=== PATIENT | male | born 1970 | race Caucasian/White ===

== ENCOUNTER 2017-06-17 11:06 | Inpatient (IN) | payer OTHER ==
[~2017-06-17] VITALS: Ht 170.2 cm; Wt 63.0 kg
[~2017-06-17 11:06] MED LIST: GLUCOPHAGE1000 MG PO; LANTUS SC; MELOXICAM7.5 MG PO
[2017-06-17 11:08] VITALS: BP 190/100
[2017-06-17 11:57] LABS: HEMATOCRIT 24.4 % (42.0-52.0); HEMOGLOBIN 8.3 gm/dL (14.0-18.0); MCH 30.1 pg (26.0-34.0); MCV 88.6 fL (80.0-100.0); MPV 7.7 fl. (7.2-11.1); NUCLEATED RBCS 0 /100WBC; PLATELET COUNT* 178 thou/uL (150-400); RBC 2.76 mil/uL (4.50-6.00); RDW-CV 14.1 % (10.5-14.5)
[2017-06-17 12:04] LABS: ANION GAP 10 mmol/L (7-16); APTT 24.7 Seconds (25.0-31.3); BUN 40 mg/dL (7-18); CALCIUM 8.1 mg/dL (8.5-10.1); CHLORIDE 109 mmol/L (98-107); CO2 22 mmol/L (21-32); CREATININE 3.5 mg/dL (0.6-1.3); GLUCOSE 237 mg/dL (70-99); PROTIME 10.2 Seconds (9.20-11.50); SODIUM 141 mmol/L (136-145)
[2017-06-17 12:10] LABS: ALBUMIN 2.1 g/dL (3.4-5.0); ALKALINE PHOSPHATASE 197 U/L (46-116); LIPASE 105 U/L (73-393); SGOT 32 U/L (15-37); SGPT 48 U/L (30-65); TOTAL BILIRUBIN 0.2 mg/dL (<0.1-1.0); TOTAL PROTEIN 5.3 g/dL (6.4-8.2); TROPONIN-I LEVEL <0.06 ng/mL (<0.06)
[2017-06-17 12:44] LABS: ABSOLUTE LYMPHOCYTES 0.4 thou/uL (0.8-5.3); ABSOLUTE MONOCYTES 0.7 thou/uL (0.0-1.2); ABSOLUTE NEUTROPHILS 8.9 thou/uL (1.6-8.1); PLATELET ESTIMATE ADEQUATE
[2017-06-17 12:45] LABS: ANISOCYTOSIS 1+; POIKILOCYTOSIS 1+
[2017-06-17 13:31] VITALS: BP 152/86; BP 227/80
[2017-06-17 14:00] VITALS: BP 161/86
--- NOTE | 2017-06-17 14:00 | NUR ---
RECEIVED REPORT FROM LUIS ALBERTO IN ER. ASSUMED CARE OF PT AT 1350. VSS. PT A&O X4. O2 SAT 98% ON ROOM AIR. METAL COATER PLACED TRACING SR. ADMISSION ASSESSMENT, HISTORY, AND EDUCATION COMPLETED CHARTED. PT ORIENTED TO ROOM, BED AND CALL LIGHT. IV SALINE LOCKED. PT REPORTS LEFT LEG PAIN AT 6/10. SEE EMAR FOR ADMINISTRATION AND REASSESSMENT OF PAIN MEDS. PT'S MOTHER IS AT BEDSIDE. XRAY OF FEMUR SHOWS FRACTURE - PT SCHEDULED TO HAVE SURGERY TOMOROW. PT INFORMED OF PLAN OF CARE. PT COMMUNICATES UNDERSTANDING. PT STATES HE IS HUNGRY, HOWEVER REFUSED A SNACK OF BOX LUNCH STATING HE COULD "WAIT TILL DINNER". PT DRINKING WITHOUT ISSUE. HIGH FALL RISK PRECAUTIONS IN PLACE, CALL LIGHT IS WITHIN REACH. WILL CONTINUE TO MONITOR.
[2017-06-17 15:51] VITALS: BP 137/74
[2017-06-17] MEDS ORDERED: LISINOPRIL10 MG PO (16:27)
[2017-06-17] MEDS ORDERED: ZETIA10 MG PO (16:28)
--- NOTE | 2017-06-17 17:06 | EKG ---
[place] [address] ELECTROCARDIOGRAM REPORT Name: DELISA EVANS Room: [address] ADM IN M.R.#: [id number] Admission: 06/17/17 Attend Phys: Estuardo Mckee MD Discharge: Date of : 66 Report #: [id number] THIS REPORT FOR: //name// [facility] ED Test Date: 2017-06-17 Test Time: 11:32:33 Pat Name: DELISA EVANS Department: Room: [facility] Gender: Judge'S Clerk: Angel COOL : 1970 Requested By: Dejah Lou Order Number: [id number] MD: David Villegas Measurements Intervals Squires Rate: 93 P: 63 OR: 139 QRS: -13 QRSD: 86 T: 26 QT: 338 QTc: 421 Interpretive Statements Sinus rhythm No previous ECG available for comparison Electronically Signed On 06-17-2017 17:06:29 STRING LASTER by David Villegas [email or web address] <ELECTRONICALLY SIGNED> By: David Villegas MD, [facility] 06/17/17 1706 31 31 David Villegas MD, FACC /EPI
--- NOTE | 2017-06-17 18:23 | NUR ---
VSS. O2 SAT REMAINS >90% ON ROOM AIR. FOUNTAIN VENDING MECHANIC REMAINS IN PLACE WITH NO CHANGES THIS SHIFT. PT RECEIVED IV PAIN MEDICATION FOR LEFT HIP PAIN WITH RELIEF. IV PATENT AND INFUSING. PT SEEN BY ORTHO SURGERY. CONSENTS FOR FEMUR REPAIR SIGNED AND IN THE CHART. ATTEMPTED MULTIPLE TIMES TO OBTAIN URINE SAMPLE, BUT PT CONTINUES TO STATE "I DON'T NEED TO GO RIGHT NOW". URINAL LEFT AT BEDSIDE FOR PT'S CONVENIENCE. PT ON BEDREST UNTILL SURGERY TOMORROW. PT TO BE NPO AFTER MIDNIGHT. PT REFUSED TO BE REPOSITIONED IN THE BED STATING "I'M MOST COMFORTABLE ON MY BACK". EDUCATION GIVEN ABOUT THE NEED TO TURN Q2HRS. NO SKIN ISSUES OBSERVED. PT EATING AND DRINKING WITHOUT ISSUE. MOTHER STILL AT BEDSIDE. HOULRY ROUNDING PERFORED. HIGH FALL RISK PRECAUTIONS IN PLACE. CALL LIGHT IS WITHIN REACH. WILL CONTINUE TO MONITOR FOR DURATION OF SHIFT.
[2017-06-17 20:00] VITALS: BP 149/83
[2017-06-17 22:19] LABS: URINE BILIRUBIN NEGATIVE (Negative); URINE BLOOD 3+ (Negative); URINE CLARITY CLEAR; URINE COLOR YELLOW; URINE GLUCOSE-RANDOM 1+ (Negative); URINE KETONES NEGATIVE (Negative); URINE LEUKOCYTES NEGATIVE (Negative); URINE NITRITE NEGATIVE (Negative); URINE PROTEIN 3+ (Negative); URINE UROBILINOGEN 0.2 E.U./dl (0.2-1.0)
[2017-06-17 22:27] LABS: AMP/METHAMP Negative (Negative); BARBITURATES Negative (Negative); BENZODIAZEPINES Negative (Negative); CASTS None Seen /LPF (None Seen); COCAINE Negative (Negative); CRYSTALS None Seen /LPF (None Seen); METHADONE Negative (Negative); OPIATES POSITIVE (Negative); PCP Negative (Negative); SQUAMOUS 0-3 Few /LPF (0-3); THC Negative (Negative); URINE RBC None Seen /HPF (0-2); URINE WBC 0-5 Rare /HPF (0-5)
[2017-06-17 22:28] LABS: BACTERIA None Seen /HPF (None Seen)
[2017-06-18] VITALS: BP 120/76
[2017-06-18 03:13] LABS: GLYCOHEMOGLOBIN (HGB A1C) 4.6 % (4.8-5.6)
[2017-06-18 04:00] VITALS: BP 136/57
[2017-06-18 05:18] LABS: ABSOLUTE EOSINOPHILS 0.1 thou/uL (0.0-0.7); ABSOLUTE LYMPHOCYTES 0.8 thou/uL (0.8-5.3); ABSOLUTE MONOCYTES 0.9 thou/uL (0.0-1.2); ABSOLUTE NEUTROPHILS 5.6 thou/uL (1.6-8.1); BASOPHILS 0.5 %; EOSINOPHILS 0.7 %; LYMPHOCYTES 10.4 %; MCH 30.3 pg (26.0-34.0); MCHC 34.1 g/dL (28.0-37.0); MCV 88.8 fL (80.0-100.0); MONOCYTES 12.1 %; MPV 8.1 fl. (7.2-11.1); NUCLEATED RBCS 0 /100WBC; PLATELET COUNT* 189 thou/uL (150-400); POLYS 76.3 %; RBC 2.04 mil/uL (4.50-6.00); RDW-CV 14.4 % (10.5-14.5); WBC 7.4 thou/uL (4.0-11.0)
[2017-06-18 05:44] LABS: HEMATOCRIT 18.1 % (42.0-52.0); HEMOGLOBIN 6.2 gm/dL (14.0-18.0)
[2017-06-18 05:53] LABS: CALCIUM 7.2 mg/dL (8.5-10.1); CREATININE 3.7 mg/dL (0.6-1.3); POTASSIUM 5.2 mmol/L (3.5-5.1)
--- NOTE | 2017-06-18 07:33 | CON ---
[address] [address] CONSULTATION Name: DELISA EVANS Room: [address] IN .R.#: [id number] Admission: 06/17/17 Attend Phys: Estuardo Mckee MD Discharge: Date of : 66 Report #: [id number] THIS REPORT FOR: //name// CC: Estuardo Juárez DATE OF SERVICE: 06/17/2017 CHIEF COMPLAINT: Left hip pain and fracture. HISTORY OF PRESENT ILLNESS: The patient is a 46-year-old male with medical history that presented home with fall. Does live with his mother and has longstanding diabetes, is insulin-dependent. Mother mentions he may have been hypoglycemic, lost his balance, had a fall. Denies any syncope or chest pain. The patient is not aware of anything he could have tripped over but states he does have pain that last for hours since his injury, does get to an 8/10, increasing to 10/10 with movement. He has been admitted through the ER. He is currently immobilized and resting in bed and states that this does help. We are consulted for further evaluation. MEDICAL HISTORY: Kidney failure, anemia, left femur fracture, diabetes. ALLERGIES: The patient denies. MEDICATIONS: Metformin, insulin, meloxicam. FAMILY HISTORY: The patient has no pertinent and noncontributory family history. SOCIAL HISTORY: The patient denies smoking, alcohol or recreational drug use. REVIEW OF SYSTEMS: A 12-system review of systems is negative except for pertinent positives revealed in HPI. PHYSICAL EXAMINATION: GENERAL: The patient is in no acute distress at this time. HEENT: Head: Normocephalic, atraumatic. Eyes: Pupils equal, round and reactive. NOSE: Clear without ulceration. MOUTH: Mucous membranes dry. No ulcerations. NECK: Supple, no JVD. CARDIOVASCULAR: Regular rate and rhythm. Cap refill normal. LUNGS: Clear to auscultation bilaterally. No wheezes or rales. ABDOMEN: Soft. Bowel sounds present. EXTREMITIES: The patient has had shortened externally rotated left lower extremity with painful movement. Does [place] [address] CONSULTATION Name: DELISA EVANS Room: [address]#: [id number] Admission: 06/17/17 Attend Phys: Estuardo Mckee MD Discharge: Date of : 66 Report #: [id number] SKIN: The patient has no rashes or nodules. PSYCHIATRIC: The patient has appropriate mood, affect and judgment. NEUROLOGIC: The patient is alert and oriented x 3. Does have appropriate sensation throughout the lower extremity. X-ray evaluation of the left hip yields a displaced left intertrochanteric femur fracture. Chest x-ray reveals no acute cardiopulmonary processes. Laboratory studies show his hemoglobin low at 8.3. Potassium is 5, he has sodium 141, carbon dioxide 22, anion gap 10, BUN 40, creatinine 3.5, glucose 237. Hemoglobin was 9.3. VITAL SIGNS: Pulse 98, blood pressure 163/82, pulse 93, respirations 13, temperature 98.0. ASSESSMENT: 1. Left femur fracture, intertrochanteric fracture with displacement. 2. Renal failure. 3. Insulin-dependent diabetes. 4. Hypertension. PLAN: At this time, the patient is getting cleared for medical. We will monitor his hemoglobin and hematocrit. He does have a left intertrochanteric fracture, which we discussed intramedullary nailing. He elected to proceed. All risks and benefits were discussed with the patient in detail including but not limited to , heart attack, stroke, blood clots, risk for neurovascular compromise, risk of anesthesia as well as infection. The patient assumed all risks and wished to proceed. <ELECTRONICALLY SIGNED> By: Chun Perez II, DO 06/18/17 0733 1845 1913Chun Perez II, DO /nt
--- NOTE | 2017-06-18 08:49 | NUR ---
ASSUMED CARE OF PATIENT AT 1900 THE PATIENT REMAINS SR ON THE MONITOR O2 SAT MAINTAINED ON RA CONTINUES ON BEDREST PENDING SURGERY PROGRESS TOWARDS GOALS CONTINUES ROMO PLACED IN AM FOR RETENTION PATIENT INTAKE 2 LITER PO PLUS 1 LITER IV 400 CC OUT AT BEGINNING OF SHIFT WITH NOTED PATIENT PLACING URINAL MULTIPLE TIMES WITH UNSUCCESSFUL ATTEMPTS AT VOIDING ROUTINE RECEIVED CRITICAL HGB IN AM 0545 REPORTED TO ORDERS TO TRANSFUSE 2 U PRBC ENTERED ET REPORTED REGIMEN CONTINUES TO BE EFFECTIVE FOR SX MANAGEMENT SAFETY INTERVENTIONS CONTINUE BED LOWERED WHEELS LOCKED CALL LIGHT IN REACH SIDE RAILS UP ALARM ON REPORT GIVEN TO ONCOMING RN
[2017-06-18 10:17] VITALS: BP 146/71; BP 156/73; BP 161/74; BP 161/83; BP 163/71; BP 172/81
--- NOTE | 2017-06-18 10:29 | NUR ---
Pt had first unit of blood given in OR, please see anest record. 2nd unit starting in recovery room at 1025.
[2017-06-18 10:40] VITALS: BP 163/71
--- NOTE | 2017-06-18 10:40 | NUR ---
RECEIVED REPORT. ASSUMED CARE OF PT AT O730. PACU CAME UP TO GET PT FOR LEFT FEMUR REPAIR AT 0740. PT RETURNED TO UNIT AT 1040, RESUMED CARE. PT RECEIVED ONE UNIT OF PRB'S DOWN IN PACU. SECOND UNIT OF BLOOD STARTED IN PACU AND THIS NURSE WILL COMPLETE. PT VSS. O2 SAT CONTINUOUSLY MONITORED, READING 98% ON ROOM AIR. BUSINESS SYSTEMS MANAGER IN PLACE TRACING SR. AM ASSESSMENT AND VITALS COMPLETED CHARTED. IV PATENT AND INFUSING. PT REPORTS LEFT HIP PAIN AT 5/10 BUT DOES NOT WANT MEDICATION FOR PAIN AT THIS TIME. PT TOLERATING BLOOD TRANSFUSION WITHOUT REACTION. MOTHER AT BEDSIDE. FOELY IN PLACE AND DRAINING DEPENDENTLY. LEFT LEG HAS THREE OPERATIVE SITES, DRESSINGS ARE CLEAN, DRY AND INTACT. PT INFORMED OF PLAN OF CARE. PT COMMUNICATES UNDERSTANDING. HIGH FALL RISK PRECAUTIONS ARE IN PLACE. CALL LIGHT IS WITHIN REACH, WILL CONTINUE TO MONITOR.
[2017-06-18 16:19] VITALS: BP 174/80
--- NOTE | 2017-06-18 16:43 | NUR ---
MET WITH PT TO DISCUSS HOME SITUATION/DC PLANNING. PT LIVE WITH HIS MOTHER. HE STATES HE IS INDEPENDENT AND USES NO EQUIPMENT, HASN'T HAD HOME CARE OR BEEN TO A SNF OR REHAB. PT IS S/P FALL AND FEMUR FX AND REPAIR. ANTICIPATE WILL NEED SOME REHAB VS HOME WITH HH. PT STATES HE CHECKS HIS FSBG AT HOME. THAT HE AND MOM BOTH DIRVE 'EACH OTHER' TO APPTS, ETC. WILL FOLLOW
--- NOTE | 2017-06-18 19:00 | NUR ---
VSS. O2 SAT REMAINS >90% ON ROOM AIR. CONTINUOUS PULSE OX IN PLACE. TECHNICAL SUPPORT INTERNSHIP IN PLACE WITH NO CHAGNES THIS SHIFT. PT REMAINS A&O X4. PT HAS REPORTED LEFT HIP PAIN THAT HAS BEEN WELL CONTROLLED WITH IV PAIN MEDICATION. PT EATING AND DRINKING WITHOUT ISSUE. ROMO IN PLACE DRAINING DEPENDENTLY - 1500 OUT DOWN IN PACU, 250 OUT ON THIS FLOOR. PT REFUSING TO BE TURNED Q2HRS, BUT HAS ALLOWED HEELS TO BE OFFLOADED WITH PILLOWS. PT STATES THAT HE WILL ALLOW PILLOWS TO PROP HIM ON HIS SIDE TONIGHT WHEN HE'S "READY TO SLEEP". MOTHER VISTED THIS AFTERNOON. PT CONTINUED TO HAVE NO ADVERSE EFFECTS FROM BLOOD TRANSFUSIONS. IV PATENT AND INFUSING FLUIDS. FALL RISK PRECAUTIONS IN PLACE. CALL LIGHT IS IN PLACE. HOURLY ROUNDING. WILL CONTINUE TO MONITOR FOR DURATION OF SHIFT.
[2017-06-18 20:00] VITALS: BP 182/77
[2017-06-19 04:00] VITALS: BP 179/81
[2017-06-19 04:58] LABS: ABSOLUTE LYMPHOCYTES 0.4 thou/uL (0.8-5.3); ABSOLUTE MONOCYTES 1.3 thou/uL (0.0-1.2); ABSOLUTE NEUTROPHILS 7.4 thou/uL (1.6-8.1); BASOPHILS 0.3 %; EOSINOPHILS 0.1 %; HEMATOCRIT 27.2 % (42.0-52.0); LYMPHOCYTES 4.8 %; MCH 30.9 pg (26.0-34.0); MCHC 34.6 g/dL (28.0-37.0); MCV 89.4 fL (80.0-100.0); MONOCYTES 13.9 %; MPV 8.3 fl. (7.2-11.1); NUCLEATED RBCS 0 /100WBC; PLATELET COUNT* 157 thou/uL (150-400); POLYS 80.9 %; RBC 3.04 mil/uL (4.50-6.00); RDW-CV 14.3 % (10.5-14.5); WBC 9.1 thou/uL (4.0-11.0)
[2017-06-19 05:00] LABS: HEMOGLOBIN 9.4 gm/dL (14.0-18.0)
[2017-06-19 05:09] LABS: ALBUMIN 1.6 g/dL (3.4-5.0); CALCIUM 7.2 mg/dL (8.5-10.1); CREATININE 3.8 mg/dL (0.6-1.3); POTASSIUM 4.7 mmol/L (3.5-5.1); TOTAL BILIRUBIN 0.2 mg/dL (<0.1-1.0); TOTAL PROTEIN 4.3 g/dL (6.4-8.2)
--- NOTE | 2017-06-19 06:31 | NUR ---
ASSUMED CARE OF PATIENT AT 1900 THE PATIENT MAINTAINS M/S STATUS NO MONITORING ON TELEPACK CONT O2 SAT MAINTAINED DURING NIGHT CONTINUES TO BE BED REST POST OP DRESSING TO LEFT HIP C/D/I ABX TX CONTINUES ORDERED WITHOUT S/SX OF ADVERSE EFFECT PATIENT CONTINUES TO PROGRESS TOWARDS GOALS PAIN MANAGED WITH PRN INTERVENTIONS EFFECTIVELY ROUTINE REGIMEN CONTINUES TO BE EFFECTIVE FOR SX MANAGEMENT SAFETY INTERVENTIONS CONTINUE BED LOWERED WHEELS LOCKED CALL LIGHT IN REACH SIDE RAILS UP ALARM ON REPORT TO BE GIVEN TO ONCOMING RN
[2017-06-19 08:05] VITALS: BP 154/62
--- NOTE | 2017-06-19 09:56 | CON ---
[address] [address] CONSULTATION Name: DELISA EVANS Room: [address] IN M.R.#: [id number] Admission: 06/17/17 Attend Phys: Estuardo Mckee MD Discharge: Date of : 66 Report #: [id number] THIS REPORT FOR: //name// CC: Estuardo Juárez CONSULTATION OBTAINED BY: Dr. Mckee for acute kidney injury. HISTORY OF PRESENT ILLNESS: The patient is 46 years old. He has history of longstanding diabetes and is insulin dependent. The patient apparently became hypoglycemic and lost his balance and fell and fractured his left femur. He developed severe acute blood loss anemia and had an operative open reduction and internal fixation of his left hip. We were consulted because he was found to be in acute kidney injury. The patient has not been having any nausea or vomiting. No urinary complaints except he did not make much urine till the Cintron catheter was placed. Overnight, he has made decent amount of urine per the nursing staff. Today, he feels comfortable. His hemoglobin was low, so he is getting a transfusion. No chest pain reported. No shortness of breath reported. No fevers, rigors or chills overnight. PAST MEDICAL HISTORY: Type 1 diabetes, on insulin. Acute kidney injury, anemia secondary to blood loss and fractured left femur from fall. ALLERGIES: None. HOME MEDICATIONS: Metformin, glargine insulin and Meloxicam. PERSONAL SOCIAL AND FAMILY HISTORY: Negative for any smoking or ESRD. REVIEW OF SYSTEMS: As mentioned above, no chest pain. No shortness of breath. Making good urine with a Cintron catheter. PHYSICAL EXAMINATION: VITAL SIGNS: His blood pressure is 136/57, pulse rate is 70, temperature is 37.5. GENERAL: He is awake, he is alert, answers questions appropriately. LUNGS: Clear. HEART: Regular S1 and S2. ABDOMEN: Soft. EXTREMITIES: Left leg has operative changes with dressing on the hip area. No edema in lower extremities. He has a Cintron catheter in place. LABORATORY DATA: White count is 7.4, hemoglobin dropped from 8.3-6.2. His platelets 189,000. Metabolic panel: Sodium is 138, potassium is 5.2, chloride 101, bicarbonate 21, BUN is 43. Creatinine 3.7, up from 3.5 yesterday. His baseline is unknown to us, was normal 14 years ago in our hospital system. Calcium is 7.2. His A1c is 4.6, on the lower side, [place] [address] CONSULTATION Name: DELISA EVANS Room: [address] IN [facility]#: [id number] Admission: 06/17/17 Attend Phys: Estuardo Mckee MD Discharge: Date of : 66 Report #: [id number] chronic hypoglycemia. Iron saturation is 24%,. Alkaline phosphatase is elevated. Creatinine kinase is 969, albumin is 2.1. TSH is elevated 9.380. Urinalysis suggests 3+ protein, 3+ blood, but no rbc's were noted. ASSESSMENT: 1. Acute kidney injury. 2. Longstanding history of diabetes. 3. Baseline creatinine not known, was essentially normal more than a decade ago in our hospital system. 4. Proteinuria. 5. Acute kidney injury, in all likelihood secondary to acute blood loss anemia and rhabdomyolysis from the fall, possible contribution from urine retention. PLAN: 1. Continue normal saline at 100 mL an hour. 2. Agree with blood transfusion. 3. Labs in the morning. 4. Continue the Cintron catheter for now. 5. Need evaluation for proteinuria as an outpatient. 6. Get an ultrasound of the kidneys while in the hospital. 7. Please avoid all NSAIDs and intravenous contrast and other nephrotoxic agents. Discussed with Dr. Mckee. <ELECTRONICALLY SIGNED> By: Joyce Manning MD 06/19/17 0956 1209 [id number] Manning MD /nt
[2017-06-19 16:12] VITALS: BP 167/75
[2017-06-19 20:00] VITALS: BP 156/48
[2017-06-20 00:10] VITALS: BP 152/69
[2017-06-20 05:04] LABS: HEMATOCRIT 26.3 % (42.0-52.0); HEMOGLOBIN 9.2 gm/dL (14.0-18.0); MCH 31.4 pg (26.0-34.0); MCHC 34.8 g/dL (28.0-37.0); MCV 90.2 fL (80.0-100.0); MPV 7.9 fl. (7.2-11.1); NUCLEATED RBCS 0 /100WBC; PLATELET COUNT* 167 thou/uL (150-400); RBC 2.92 mil/uL (4.50-6.00); RDW-CV 14.8 % (10.5-14.5); WBC 9.5 thou/uL (4.0-11.0)
[2017-06-20 05:33] LABS: CALCIUM 7.5 mg/dL (8.5-10.1); POTASSIUM 4.8 mmol/L (3.5-5.1)
[2017-06-20 05:39] LABS: CALCIUM 7.3 mg/dL (8.5-10.1); CREATININE 3.9 mg/dL (0.6-1.3); POTASSIUM 4.7 mmol/L (3.5-5.1)
[2017-06-20 05:52] LABS: ABSOLUTE EOSINOPHILS 0.1 thou/uL (0.0-0.7); ABSOLUTE LYMPHOCYTES 0.3 thou/uL (0.8-5.3); ABSOLUTE MONOCYTES 1.2 thou/uL (0.0-1.2); ABSOLUTE NEUTROPHILS 7.9 thou/uL (1.6-8.1); PLATELET ESTIMATE ADEQUATE
[2017-06-20 08:00] VITALS: BP 154/72
--- NOTE | 2017-06-20 08:28 | NUR ---
PATIENT DECLINED PRN HYDROCODONE MULTIPLE TIMES DURING NIGHT RECEIVED INTERVENTION X 1 EFFECTIVELY MANAGING SX OF DISCOMFORT IN AM PATIENT WITHOUT S/SX OF ACUTE DISTRESS CONTINUES TO PROGRESS TOWARDS GOALS WILL CONTINUE TO MONITOR
[2017-06-20 12:52] VITALS: BP 147/66
--- NOTE | 2017-06-20 13:00 | NUR ---
ASSUMED CARE OF PT AT APPROXIMATELY 0730. PT RESTING IN BED WAITING FOR BREAKFAST. PT A&0X4. DENIES ANY PAIN OR SHORTNESS OF BREATH AT THIS TIME GIVEN PAIN PILL BY NOC SHIFT EARLY THIS AM. PT MED SURG STATUS. ON RA SAT 98%. ROMO TO DEPENDENT DRAINAGE. IVF. LEFT FEMUR FRACTURE NOTED. 50% WB TO LLE. DRESSING IN PLACE C/D/I. AM ASSESSMENT CHARTED. MEDICATIONS PER AUG. PT REPOSITIONED EVERY 2 HOURS FOR COMFORT, HOURLY ROUNDING OBSERVED. BED IN LOW POSITION. BED ALARM IN PLACE. FALL PRECAUTIONS IN PLACE. CALL LIGHT WITHIN REACH. WILL CONTINUE PLAN OF CARE.
[2017-06-20 16:00] VITALS: BP 194/77
--- NOTE | 2017-06-20 18:23 | NUR ---
NO ACUTE CHANGES THROUGHOUT SHIFT. REFER TO CHARTING, PT FAMILY AT BEDSIDE THROUGHOUT SHIFT. MED SURG STATUS. ON RA SAT UPPER 90'S. PT COMPLAINED OF PAIN TO LLE. TREATED WITH PRN HYDROCODONE-2 TABS WITH RELIEF. ROMO TO DEPENDENT DRAINAGE. IVF. MEDICATIONS PER MAR. PT REPOSITIONED EVERY 2 HOURS FOR COMFORT. HOURLY ROUNDING OBSERVED. BED IN LOW POSITION. BED ALARM IN PLACE. FALL PRECAUTIONS IN PLACE. CALL LIGHT WITHIN REACH. WILL CONTINUE PLAN OF CARE.
--- NOTE | 2017-06-20 21:34 | NUR ---
PATIENT TRANSFERRED FROM TELE TO ROOM 114 AT 2039 IN STABLE CONDITION. ALERT AND ORIENTED. DENIES CONCERNS AT THIS TIME. WILL CONTINUE TO MONITOR.
[2017-06-21 03:28] VITALS: BP 179/78
--- NOTE | 2017-06-21 04:05 | NUR ---
PATIENT ORIENTED X4 ON HOURLY ROUNDS. DENIES NEED FOR PAIN MEDICATION. TOLERATING DIET. ROMO CATHETER PATENT, CLEAR YELLOW RETURN. REPOSITIONED SELF FREQUENTLY. IVF INFUSING ORDERED. DRESSING TO LEFT HIP CLEAN, DRY AND INTACT. WILL CONTINUE TO MONITOR.
[2017-06-21 04:06] LABS: ABSOLUTE EOSINOPHILS 0.2 thou/uL (0.0-0.7); ABSOLUTE LYMPHOCYTES 0.6 thou/uL (0.8-5.3); ABSOLUTE MONOCYTES 1.1 thou/uL (0.0-1.2); ABSOLUTE NEUTROPHILS 6.9 thou/uL (1.6-8.1); BASOPHILS 0.3 %; EOSINOPHILS 2.6 %; HEMATOCRIT 25.7 % (42.0-52.0); LYMPHOCYTES 6.7 %; MCH 31.2 pg (26.0-34.0); MCHC 34.8 g/dL (28.0-37.0); MCV 89.8 fL (80.0-100.0); MONOCYTES 12.7 %; MPV 7.9 fl. (7.2-11.1); NUCLEATED RBCS 0 /100WBC; PLATELET COUNT* 195 thou/uL (150-400); POLYS 77.7 %; RBC 2.87 mil/uL (4.50-6.00); RDW-CV 14.9 % (10.5-14.5); WBC 8.9 thou/uL (4.0-11.0)
[2017-06-21 04:31] LABS: ALBUMIN 1.1 g/dL (3.4-5.0); CALCIUM 7.4 mg/dL (8.5-10.1); CREATININE 3.9 mg/dL (0.6-1.3); POTASSIUM 4.8 mmol/L (3.5-5.1); TOTAL BILIRUBIN 0.2 mg/dL (<0.1-1.0); TOTAL PROTEIN 4.2 g/dL (6.4-8.2)
[2017-06-21 07:56] VITALS: BP 195/81
--- NOTE | 2017-06-21 09:32 | NUR ---
ASSUMED CARE OF PATIENT AFTER REPORT THIS MORNING. PATIENT AWAKE, ALERT, AND ORIENTED APPROPRIATELY. PHYSICAL ASSESSMENT COMPELTED AND CHARTED. NO COMPLAINTS OF PAIN. GIVEN SCHEDULED MEDICATIONS, SEE EMAR FOR DOCUMENTATION. VITAL SIGNS HYPERTENSIVE. BLOOD PRESSURE MEDICATIONS GIVEN. OTHER VITAL SIGNS STABLE. OXYGEN SATURATION WITHIN NORMAL LIMITS ON ROOM AIR. PATIENT TRANSFERS AND AMBULATES WITH ASSISTANCE FROM STAFF. USES CALL LIGHT APPROPRIATELY. FALL PRECAUTIONS IN PLACE. DENIES NEEDS AT THIS TIME. CALL LIGHT WITHIN REACH. NURSING WILL CONTINUE TO MONITOR.
--- NOTE | 2017-06-21 10:38 | NUR ---
SPOKE WITH DR. MCPHERSON, NEPHROLOGY, REGARDING CLEARANCE TO DISCHARGE PATIENT. PHYSICIAN SAID THIS WAS OK AND TO FOLLOW UP WITH NEPHROLOGY IN 2 WEEKS. NURSING WILL CONTINUE TO MONITOR PATIENT.
--- NOTE | 2017-06-21 10:49 | OP ---
[address] [address] OPERATIVE REPORT Name: DELISA EVANS Room: [address] IN M.R.#: [id number] Admission: 06/17/17 Attend Phys: Estuardo Mckee MD Discharge: Date of : 66 Report #: [id number] THIS REPORT FOR: //name// CC: Estuardo Juárez DATE OF SERVICE: 06/18/2017 PREOPERATIVE DIAGNOSIS: Left hip comminuted and displaced intertrochanteric hip fracture. POSTOPERATIVE DIAGNOSIS: Left hip comminuted and displaced intertrochanteric hip fracture. PROCEDURE: Left hip intramedullary nailing with gamma nail. SURGEON: Chun Perez II, DO. ANESTHESIA: LMA. ESTIMATED BLOOD LOSS: 150 mL. ANTIBIOTICS: Ancef preoperatively. DRAINS: None. COMPLICATIONS: None. DISPOSITION: Stable to recovery room. IMPLANTS USED: Nola gamma nail with appropriate length lag screw and distal static screw. DESCRIPTION OF PROCEDURE: The patient was taken to the operative suite, placed supine on the operating table and given appropriate anesthesia. The patient's leg was placed in the [place] traction table and reduced under fluoroscopic guidance. There was some significant comminution at the neck and over the anterior aspect as well as the posterior intertrochanteric region. These were manipulated utilizing the leg in internal and external rotation. The leg was then sterilely prepped and draped and surgery began by incising the proximal to the greater trochanter and carried out through the subcutaneous tissues. The starter awl was then utilized to begin the nailing. Guidewire was then placed using sequentially reamed distally up to 13 and proximally to 15.5. An appropriate angle nail was then inserted into the appropriate depth. Reduction of the neck was then performed utilizing bone hook and Hohmann in the anatomic fashion. The lag screw guidewire was then placed up into the [place] [address] OPERATIVE REPORT Name: DELISA EVANS Room: [address] IN [facility]#: [id number] Admission: 06/17/17 Attend Phys: Estuardo Mckee MD Discharge: Date of : 66 Report #: [id number] central and posterior direction that was made to appropriate depth. The lag screw reamer was then utilized up into the head and neck. The appropriate depth lag screw was then selected and taken up into correct position in the anterior center of the head. The rotational screw was then placed in the proximal aspect of the nail and secured in position with one-half turn loosened to allow for compression. Reduction was then performed with compression of the screw. The distal screw was then placed in a static position. Final irrigation was performed of the wound. The crystal mounter guide was then removed. The anterior layer was then closed utilizing a 2-0 Vicryl. Skin was closed with 3-0 Monocryl with Dermabond and sterile dressing applied. Final imaging was taken under C-arm, both AP and lateral direction, showing excellent rotational alignment of the reduced fracture. The patient transferred to recovery in stable condition. Counts were correct throughout the procedure. <ELECTRONICALLY SIGNED> By: Chun Perez II, DO 06/21/17 1049 2149 [id number] Perez II DO /nt
--- NOTE | 2017-06-21 10:50 | NUR ---
REMOVED ROMO CATHETER AT THIS TIME. DRAINED 450 ML OF URINE FROM CATHETER COLLECTION BAG. PATIENT TOLERATED WELL. NURSING WILL CONTINUE TO MONITOR.
[2017-06-21 16:00] VITALS: BP 176/78
--- NOTE | 2017-06-21 16:49 | NUR ---
DISCUSSED EARLIER WITH . HE WROTE DISCHARGE ORDERS. DISCUSSED POSSIBLE SNF PT.NOT MOVING VERY WELL IN [place] THIS WOULD REQUIRE INS[employer] AND MAY NOT HAPPEN TODAY. DISCUSSED WITH PT. HE WANTS TO GO HOME. EXPLAINED HE WILL NEED TO BE WALKING BETTER SO HE IS ABLE TO WALK HOUSEHOLD DISTANCES WITH [facility]. DISCUSSED SNFS. HE SAID HE WOULD NEED TO TALK TO HIS MOM ABOUT IT. CM ATTEMPTED TO CALL HIS MOTHER BUT RECEIVED VM. OBTAINED LIST OF SNF THAT CONTRACT WITH HIS INSURANCE FROM CM AT [employer]. LYNNE WILL TRY TO CALL MOTHER FIRST THING IN AM TO DISCUSS.
--- NOTE | 2017-06-21 16:58 | NUR ---
PATIENT REMAINS ALERT AND ORIENTED APPROPRIATELY. GIVEN SCHEDULED AND PRN MEDICATIONS FOR PAIN, SEE EMAR FOR DOCUMENTATION. VITAL SIGNS HAVE REMAINED STABLE. OXYGEN SATURATION WITHIN NORMAL LIMITS ON ROOM AIR. PATIENT SAT IN CHAIR AT BEDSIDE FOR LUNCH. ASSIST OF TWO STAFF MEMBERS TO TRANSFER PATIENT. DENIES NEEDS AT THIS TIME. CALL LIGHT WITHIN REACH. NURSING WILL CONTINUE TO MONITOR.
--- NOTE | 2017-06-21 18:19 | NUR ---
PATIENT UNABLE TO VOID SINCE ROMO CATHETER WAS REMOVED. BLADDER SCANNED PATIENT AND RECEIVED >200 ML. WILL NOTIFY PHYSICIAN. NURSING WILL CONTINUE TO MONITOR.
[2017-06-21 20:08] VITALS: BP 184/82
[2017-06-22 00:08] VITALS: BP 164/78
--- NOTE | 2017-06-22 04:07 | NUR ---
PATIENT RESTING QUIETLY THIS AM ON HOURLY ROUNDS. DENIES NEED FOR PAIN MEDICATION. VOIDING PER URINAL. TOLERATING DIET. REPOSITIONED FOR COMFORT. DRESSING TO LEFT HIP CLEAN, DRY AND INTACT. VITAL SIGNS STABLE. CONTINUE TO MONITOR.
[2017-06-22 08:50] VITALS: BP 177/86
[2017-06-22 08:50] LABS: CALCIUM 7.4 mg/dL (8.5-10.1); CREATININE 3.8 mg/dL (0.6-1.3); POTASSIUM 4.7 mmol/L (3.5-5.1)
--- NOTE | 2017-06-22 10:28 | NUR ---
SPOKE WITH MOTHER,CHECO,THIS AM ON PHONE. DISCUSSED DISCHARGE PLANNING WITH HER. SHE WOULD LIKE PT.TO GO TO THE [facility] FOR SKILLED STAY. PT.AGREEABLE. REFERRAL MADE TO [facility]. SHE WILL WORK ON GETTING INSURANCE AUTH.
[2017-06-22 14:45] VITALS: BP 177/86
[2017-06-22] MEDS ORDERED: HYDROCODONE-AP1 EAC6 PO (15:04)
[2017-06-22] MEDS ORDERED: NORVASC5 MG PO (15:10)
[2017-06-22] MEDS ORDERED: HEPARIN 1,1000 UNIT/ SUBQ (15:13)
--- NOTE | 2017-06-22 15:38 | NUR ---
[facility] CALLED AND SAID THEY DID GET INSURANCE AUTH FOR PT.TO COME THERE. THEIR WC VAN CAN PICK PT.UP AT 5 PM. MOTHER AT BEDSIDE. INFORMED HER AND PT.OF DISCHARGE TIME. FAXED DISCHARGE ORDERS TO [facility]. CHART BEING COPIED TO GO WITH PT. DUARTE ALEGRIA WILL CALL REPORT TO [phone].
--- NOTE | 2017-06-22 17:27 | NUR ---
PATIENT LEFT UNIT WITH TRANSPORTATION AT 1730 BY WHEELCHAIR. ALL BELONGINGS LEFT WITH MOTHER. IV DC'D. EDUCATED PATIENT AND MOTHER ON DISCHARGE INSTRUCTIONS AND NEW MED SCRIPTS. PATIENT AND MOTHER VERBALIZED UNDERSTANDING.
[2017-06-22 17:31] VITALS: BP 177/86
[2017-06-23 08:08] LABS: GLOBULIN TOTAL 2.2 g/dL (2.2-3.9); M-SPIKE Not Observed g/dL (Not Observed)
[2017-06-23 09:10] LABS: ANA INTERPRETATION Negative (Negative)
== END 2017-06-22 17:46 | DRG 480 ==
LOC: M.ERS 11:06 → M.2W 12:38 → M.TBA-ER 12:38 → M.2W 13:44 → M.ORTHSURG 06-20 20:39
PROVIDERS: Internal Medicine Nephrology; Physician Assistant; ADMIT Internal Medicine
PROC: 0QS706Z Reposition Left Upper Femur with Intramedullary Internal Fixation Device, Open Approach (ICD-10-PCS; principal; 2017-06-18)
PROC: 30233N1 Transfusion of Nonautologous Red Blood Cells into Peripheral Vein, Percutaneous Approach (ICD-10-PCS; 2017-06-18)
DX: S72.142A Displaced intertrochanteric fracture of left femur, initial encounter for closed fracture (principal); N17.0 Acute kidney failure with tubular necrosis; D62 Acute posthemorrhagic anemia; M62.82 Rhabdomyolysis; I10 Essential (primary) hypertension; E11.9 Type 2 diabetes mellitus without complications; M19.90 Unspecified osteoarthritis, unspecified site; I16.0 Hypertensive urgency; W18.39XA Other fall on same level, initial encounter; Y93.89 Activity, other specified; Y92.098 Other place in other non-institutional residence as the place of occurrence of the external cause; Z79.4 Long term (current) use of insulin; Y99.8 Other external cause status

== ENCOUNTER 2018-02-15 09:33 | Inpatient (IN) | payer OTHER ==
[2018-02-15] VITALS (10 sets, daily range): BP systolic 98–183; BP diastolic 51–86
[~2018-02-15] VITALS: Ht 165.1 cm; Wt 63.6 kg
[~2018-02-15 09:33] MED LIST changes: +HEPARIN 1,1000 UNIT/ SUBQ; +HYDROCODONE-AP1 EAC6 PO; +LISINOPRIL10 MG PO; +NORVASC5 MG PO; +ZETIA10 MG PO
--- NOTE | 2018-02-15 09:57 | NUR ---
PT TAKEN TO CT UPON ARRIVAL TO THE ER, PT TAKEN ON EMS MONITORS AND O2. PT WAS INTUBATED IN FIELD. CODE CALLED IN CT 2 RN WITH PT, ERP WITH PT
[2018-02-15 09:58] LABS: HEMATOCRIT 21.8 % (42.0-52.0); HEMOGLOBIN 7.3 gm/dL (14.0-18.0); MCH 30.6 pg (26.0-34.0); MCHC 33.3 g/dL (28.0-37.0); MCV 91.8 fL (80.0-100.0); MPV 8.7 fl. (7.2-11.1); RBC 2.37 mil/uL (4.50-6.00); RDW-CV 14.2 % (10.5-14.5); WBC 9.7 thou/uL (4.0-11.0)
[2018-02-15 10:03] LABS: CALCIUM 7.1 mg/dL (8.5-10.1); CREATININE 11.2 mg/dL (0.6-1.3); POTASSIUM 5.8 mmol/L (3.5-5.1)
[2018-02-15 10:08] LABS: ALBUMIN 2.1 g/dL (3.4-5.0); TOTAL BILIRUBIN 0.3 mg/dL (<0.1-1.0); TOTAL PROTEIN 4.8 g/dL (6.4-8.2)
[2018-02-15 10:28] LABS: APTT 60.8 Seconds (25.0-31.3); INR 1.2
--- NOTE | 2018-02-15 11:35 | NUR ---
LATE ENTRY: PT TAKEN TO CT SCAN, AFTER HEAD CT COMPLETE PULSE CHECK ON PT REVEALS PT HAS NO PULSE. CODE KEYONNA CALLED AT 0954 AND CPR STARTED.SEE CODE BLUE SHEET FOR DETAILS. ROSC OBTAINED AT 1003. CT CHEST/ABD/PELVIS THEN TAKEN. PT MAINTAINS NSR DURING SCAN AND TRANSPORT BACK TO ER ROOM 1. PT CLEANED UP AND REMAINS UNRESPONSIVE.
[2018-02-15 12:01] LABS: BE -24.4 mmol/L (-2 to +3); PCO2 33.8 mmHg (35.0-45.0)
[2018-02-15 12:02] LABS: HCO3 6.5 mmol/L (22.0-26.0); PO2 > 488.8 mmHg (75.0-100.0); pH 6.899 (7.340-7.450)
[2018-02-15 14:11] LABS: URINE BILIRUBIN NEGATIVE (Negative); URINE BLOOD 2+ (Negative); URINE CLARITY CLEAR; URINE COLOR YELLOW; URINE GLUCOSE-RANDOM 2+ (Negative); URINE KETONES NEGATIVE (Negative); URINE LEUKOCYTES NEGATIVE (Negative); URINE NITRITE NEGATIVE (Negative); URINE PROTEIN 3+ (Negative); URINE UROBILINOGEN 0.2 E.U./dl (0.2-1.0)
[2018-02-15 14:21] LABS: AMP/METHAMP Negative (Negative); BARBITURATES Negative (Negative); BENZODIAZEPINES Negative (Negative); COCAINE Negative (Negative); METHADONE Negative (Negative); OPIATES Negative (Negative); PCP Negative (Negative); THC Negative (Negative)
[2018-02-15 14:26] LABS: SQUAMOUS 0-3 Few /LPF (0-3); URINE RBC 0-2 Rare /HPF (0-2); URINE WBC 0-5 Rare /HPF (0-5)
[2018-02-15 14:27] LABS: BACTERIA 1-9 Few /HPF (None Seen); CASTS None Seen /LPF (None Seen); CRYSTALS None Seen /LPF (None Seen); MUCUS None Seen strn/LPF (None Seen)
[2018-02-15 14:28] LABS: WBC CLUMPS Few (None Seen)
[2018-02-15 14:29] LABS: YEAST Present (None Seen)
--- NOTE | 2018-02-15 15:23 | 2DMMODE ---
[place] [address] 2 D/M-MODE ECHOCARDIOGRAM Name: DELISA EVANS Room: [facility] IN [facility]#: [id number] Admission: 02/15/18 Attend Phys: Carmela Orantes, Discharge: Date of : 66 Date of Service: 02/15/18 1523 Report #: [id number] THIS REPORT FOR: //name// APPROVED REPORT Study performed: 02/15/2018 13:48:40 EXAM: Comprehensive 2D, Doppler, and color-flow Echocardiogram Patient Location: In-Patient Room #: [facility] Status: routine BSA: 2.04 HR: 79 bpm BP: 98/51 mmHg Rhythm: NSR Other Information Study Quality: Good Indications Pericardial Effusion VEGETATIONS 2D Dimensions LVEF(%): 71.80 (>50%) IVSd: 13.13 (7-11mm) LVOT Diam: 18.58 (18-24mm) LVDd: 39.72 mm PWd: 13.71 (7-11mm) Ascending Ao: 26.40 (22-36mm) LVDs: 23.64 (25-40mm) Aortic Root: 30.71 mm Worthington's LVEF: 71.80 % Aortic Valve AoV Peak Bob.: 1.29 m/s AO Peak Gr.: 6.67 mmHg LVOT Max P.27 mmHg AO Mean Gr.: 3.33 mmHg LVOT Mean P.50 mmHg LVOT Max V: 0.90 m/s AO V2 VTI: 23.17 cm LVOT Mean V: 0.56 m/s ANNALISA (VTI): 2.12 cm2 LVOT V1 VTI: 18.15 cm Pulmonary Valve PV Peak Bob.: 1.03 m/s PV Peak Gr.: 4.26 mmHg Tricuspid Valve RAP Estimate: 5.00 [place] [address] 2 D/M-MODE ECHOCARDIOGRAM Name: DELISA EVANS Room: [address] IN [facility]#: [id number] Admission: 02/15/18 Attend Phys: Carmela Orantes, Discharge: Date of : 66 Date of Service: 02/15/18 1523 Report #: [id number] Peak Gr.: 43.02 mmHg RVSP: 48.02 mmHg PA Pressure: 48.02 mmHg Left Ventricle The left ventricle is normal size. There is normal LV segmental wall motion. Mild to moderate concentric left ventricular hypertrophy. Left ventricular systolic function is normal. The left ventricular ejection fraction is within the normal range. LVEF is 65%. Grade I - abnormal relaxation pattern. Right Ventricle The right ventricle is normal size. The right ventricular systolic function is normal. Atria The left atrium size is normal. There is a thrombus in the right atrium. Aortic Valve Mild aortic valve sclerosis. No aortic regurgitation is present. There is no aortic valvular stenosis. Mitral Valve The mitral valve is normal in structure. There is no mitral valve regurgitation noted. No evidence of mitral valve stenosis. Tricuspid Valve The tricuspid valve is normal in structure.There appears to be a prominent vegetaion appended to the tricuspid valve. Moderate tricuspid regurgitation Pulmonic Valve The pulmonary valve is normal in structure. There also appears to be vegetation appended to the pulmonic vallvular apparatus. There is no pulmonic valvular regurgitation. Vegetation is seen. Great Vessels The aortic root is normal in size. IVC is normal in size and collapses with >50% inspiration Pericardium Mild to moderate circumferential pericardial effusion. <Conclusion> The left ventricle [place] [address] 2 D/M-MODE ECHOCARDIOGRAM Name: DELISA EVANS Room: [address] IN [facility]#: [id number] Admission: 02/15/18 Attend Phys: Carmela Orantes, Discharge: Date of : 66 Date of Service: 02/15/18 1523 Report #: [id number] Mild to moderate concentric left ventricular hypertrophy. Left ventricular systolic function is normal. The left ventricular ejection fraction is within the normal range. LVEF is 65%. Grade I - abnormal relaxation pattern. The right ventricle is normal size. The right ventricular systolic function is normal. The left atrium size is normal. Mild aortic valve sclerosis. No aortic regurgitation is present. There is no aortic valvular stenosis. The mitral valve is normal in structure. The tricuspid valve is normal in structure.There appears to be a prominent vegetaion appended to the tricuspid valve. Moderate tricuspid regurgitation The pulmonary valve is normal in structure. There also appears to be vegetation appended to the pulmonic vallvular apparatus. The aortic root is normal in size. IVC is normal in size and collapses with >50% inspiration Mild to moderate circumferential pericardial effusion. There is normal LV segmental wall motion. <ELECTRONICALLY SIGNED> By: David Villegas MD, FACC 02/15/18 1523 1523 1523 David Villegas MD, FACC /INF
[2018-02-15 15:33] LABS: CALCIUM 7.1 mg/dL (8.5-10.1); CREATININE 10.3 mg/dL (0.6-1.3); POTASSIUM 5.4 mmol/L (3.5-5.1)
[2018-02-15 16:29] LABS: MCH 30.4 pg (26.0-34.0); MCHC 34.5 g/dL (28.0-37.0); MCV 88.1 fL (80.0-100.0); MPV 8.3 fl. (7.2-11.1); RBC 1.96 mil/uL (4.50-6.00); RDW-CV 13.9 % (10.5-14.5); WBC 12.1 thou/uL (4.0-11.0)
--- NOTE | 2018-02-15 16:34 | NUR ---
CONSULTED FOR CENTRAL LINE FOR PT IN ACUTE RENAL FAILURE AND STROKE. UNABLE TO OBTAINE CONSENT, MEDICAL NECCISSITY DETERMINED BY DR. PAPPAS. LEFT NECK EVALUATED AND LEFT IJ NOTED TO BE WIDLEY PATENT. CENTRAL LINE PLACED PER POLICY. X-RAY SHOWS TIP 3CM BELOW MARCELA. ALL 3 LUMAN HAVE GOOD BRISK BLOOD RETURN AND EASY FLUSH. LINE RELEASED FOR USE. PRIMARY NURSING AWARE.
[2018-02-15 16:40] LABS: HEMATOCRIT 17.3 % (42.0-52.0)
[2018-02-15 17:05] LABS: BE -12.6 mmol/L (-2 to +3); HCO3 12.2 mmol/L (22.0-26.0); PO2 76.1 mmHg (75.0-100.0); pH 7.325 (7.340-7.450)
[2018-02-15 17:49] LABS: ABSOLUTE LYMPHOCYTES 0.3 thou/uL (0.8-5.3); ABSOLUTE MONOCYTES 1.2 thou/uL (0.0-1.2); ABSOLUTE NEUTROPHILS 7.6 thou/uL (1.6-8.1); BASOPHILS 0.1 %; MCH 30.9 pg (26.0-34.0); MCHC 35.5 g/dL (28.0-37.0); MCV 87.1 fL (80.0-100.0); MONOCYTES 13.4 %; MPV 7.6 fl. (7.2-11.1); NUCLEATED RBCS 0 /100WBC; PLATELET COUNT* 66 thou/uL (150-400); POLYS 83.5 %; RDW-CV 13.6 % (10.5-14.5)
[2018-02-15 17:50] LABS: HEMATOCRIT 16.5 % (42.0-52.0)
[2018-02-15 17:51] LABS: HEMOGLOBIN 5.9 gm/dL (14.0-18.0)
[2018-02-15 17:59] LABS: ALBUMIN 1.7 g/dL (3.4-5.0); CALCIUM 6.3 mg/dL (8.5-10.1); MAGNESIUM 1.5 mg/dL (1.8-2.4); POTASSIUM 4.6 mmol/L (3.5-5.1); TOTAL BILIRUBIN 0.5 mg/dL (<0.1-1.0); TOTAL PROTEIN 3.8 g/dL (6.4-8.2)
[2018-02-15 18:05] LABS: CREATININE 8.7 mg/dL (0.6-1.3)
[2018-02-15 18:42] LABS: PLATELET ESTIMATE DECREASED
[2018-02-15 18:45] LABS: ANISOCYTOSIS Occasional
--- NOTE | 2018-02-15 20:17 | NUR ---
CALLED [facility], DUE TO [facility] LESS THAN 5. REFERAL NUMBER [phone]
--- NOTE | 2018-02-15 20:18 | NUR ---
PATIENT ARRIVED TO ICU AT 1310, PLACED ON PIE MAKER, PULSES WERE DOPPLERED. SINUS RHYTHM, ALL VITALS WNL. ON VENTILATOR, APPEARS TO HAVE GI BLEEDING, MULTIPLE EPISODES OF BOWEL MOVEMENTS (LIQUID), FECAL TUBE PLACED. CENTRAL LINE AND ART LINE ORDERED AND OBTAINED PER DR PAPPAS. PATIENT APPEARS TO HAVE SOME AGONAL BREATHING ON THE VENT AT THIS TIME, RT AWARE. DR PICHARDO SPOKE WITH PATIENT FAMILY DID THIS NURSE. FAMILY IS AWARE THAT PATIENT PROGNOSIS IS POOR AND THAT PATIENT IS VERY UNSTABLE AT THIS TIME. STARTED ON HEMODILYSIS APPROXIMATELY AROUND 1630, TOLERATED 27 MINS, PRESSURES STARTED AROUND 180/90S AND DROPPED TO 80/40S DURING HEMODILYSIS. DR ZAMORA ORDERED TO START CRRT IF HEMODIALYSIS NOT TOLERATED. [facility] ORDERS AND PATIENT BEGAN CRRT AT 1745. ORDERED TO RUN FOR 8 HOURS. I0 REMOVED FROM RIGHT LEG. FAMILY REQUESTED A COMPENSATION VICE PRESIDENT READ PATIENT LAST RIGHTS JUST IN CASE HE WERE TO CODE AGAIN, COMPENSATION VICE PRESIDENT CALLED AND ARRIVED TO GIVE PATIENT LAST RIGHTS. PATIENT REMAINS A FULL CODE AT THIS TIME, EEG FOR THE AM, NO SEDATION OR RESTRAINTS, PATIENT UNRESPONSIVE WITH FIXED PUPILS.
[2018-02-15 21:20] LABS: HEMATOCRIT 23.8 % (42.0-52.0); MCHC 34.9 g/dL (28.0-37.0); MCV 88.8 fL (80.0-100.0); MPV 8.5 fl. (7.2-11.1); RBC 2.69 mil/uL (4.50-6.00); WBC 9.6 thou/uL (4.0-11.0)
[2018-02-15 21:21] LABS: HEMOGLOBIN 8.3 gm/dL (14.0-18.0)
[2018-02-15 21:32] LABS: CALCIUM 6.9 mg/dL (8.5-10.1); POTASSIUM 4.3 mmol/L (3.5-5.1)
[2018-02-15 21:34] LABS: CREATININE 7.2 mg/dL (0.6-1.3)
[2018-02-15 22:10] LABS: MAGNESIUM 1.4 mg/dL (1.8-2.4); PHOSPHORUS* 6.3 mg/dL (2.5-4.9)
--- NOTE | 2018-02-15 22:40 | NUR ---
MULTIPLE FAMILY MEMBERS IN TONIGHT, ALL QUESTIONS ANSWERED AND EDUCATION PROVIDED. PTS MOTHER ASKING IF PT IS AWARE AND IF HE WILL REGAIN CONSCIOUSNESS, STATING SHE DOES NOT WANT HIM ON LIFE SUPPORT "INDEFINITELY." EDUCATED ON PTS CONDITION AND UPCOMING TESTS, MOTHER THEN STATED "WHY DON'T YOU JUST TURN EVERYTHING OFF AND SEE WHAT HAPPENS? HOW LONG ARE YOU GOING TO LEAVE HIM LIKE THIS?" EDUCATED ON COLLABORATIVE DECISION MAKING BETWEEN FAMILY AND PHYSICIANS. MOTHER, SISTER, AND AUNT STATE THEY WILL DISCUSS WITH PHYSICIANS TOMORROW. VSS AT THIS TIME, TOLERATING CRRT WELL. PRB'S COMPLETE, RECHECK HGB 8.3. SPOKE TO DR THOMPSON, MULTIPLE LABS ORDERED WELL TRANSFUSION OF 2 UNITS FFP'S AND 1 UNIT SINGLE DONOR PLATELETS.
--- NOTE | 2018-02-15 23:45 | NUR ---
DR THOMPSON IN TO SEE PT, ORDERS RECEIVED
[2018-02-16] VITALS (20 sets, daily range): BP systolic 96–228; BP diastolic 59–112
[2018-02-16 01:29] LABS: HEMATOCRIT 22.3 % (42.0-52.0); HEMOGLOBIN 7.8 gm/dL (14.0-18.0); MCH 30.6 pg (26.0-34.0); MCV 87.5 fL (80.0-100.0); MPV 8.4 fl. (7.2-11.1); RBC 2.55 mil/uL (4.50-6.00); RDW-CV 13.5 % (10.5-14.5); WBC 6.7 thou/uL (4.0-11.0)
[2018-02-16 01:40] LABS: CALCIUM 6.9 mg/dL (8.5-10.1); MAGNESIUM 1.9 mg/dL (1.8-2.4); PHOSPHORUS* 5.1 mg/dL (2.5-4.9); POTASSIUM 3.9 mmol/L (3.5-5.1)
[2018-02-16 01:50] LABS: CREATININE 6.2 mg/dL (0.6-1.3)
[2018-02-16 06:15] LABS: MCH 30.7 pg (26.0-34.0); MCHC 35.4 g/dL (28.0-37.0); MCV 86.8 fL (80.0-100.0); RBC 2.13 mil/uL (4.50-6.00); RDW-CV 13.7 % (10.5-14.5); WBC 4.5 thou/uL (4.0-11.0)
[2018-02-16 06:23] LABS: ALBUMIN 1.9 g/dL (3.4-5.0); CALCIUM 7.4 mg/dL (8.5-10.1); CREATININE 6.6 mg/dL (0.6-1.3); HEMATOCRIT 18.5 % (42.0-52.0); HEMOGLOBIN 6.5 gm/dL (14.0-18.0); POTASSIUM 3.6 mmol/L (3.5-5.1); TOTAL PROTEIN 4.7 g/dL (6.4-8.2)
[2018-02-16 06:32] LABS: INR 1.2; PROTIME 11.6 Seconds (9.20-11.50)
[2018-02-16 06:35] LABS: APTT 31.5 Seconds (25.0-31.3)
--- NOTE | 2018-02-16 06:59 | NUR ---
NO CHANGE IN LOC OR REFLEXES. SECOND UNIT PRBC'S INFUSING AT THIS TIME. CRRT DISCONTINUED AT 0200 PER ORDER TO RUN FOR 8HR, DIALYSIS CATH PACKED WITH 1.3ML SODIUM CITRATE SOLUTION IN EACH PORT. COMPLETE BED BATH GIVEN, HAIR SHAMPOOED. FLEXISEAL LEAKED X2, APPROXIMATELY 300ML BLACK LIQUID STOOL EACH TIME. PT TURNED Q2HR THROUGHOUT THE SHIFT.
[2018-02-16 07:06] LABS: HEPATITIS B SURFACE AG Negative (Negative)
[2018-02-16 10:01] LABS: APTT 33.2 Seconds (25.0-31.3); INR 1.2; PROTIME 12.1 Seconds (9.20-11.50)
--- NOTE | 2018-02-16 10:38 | NUR ---
CRRT STARTED PER [employer] KEITH.
[2018-02-16 11:05] LABS: BE -3.7 mmol/L (-2 to +3); PCO2 22.1 mmHg (35.0-45.0); pH 7.529 (7.340-7.450)
[2018-02-16 11:08] LABS: PO2 59.7 mmHg (75.0-100.0)
--- NOTE | 2018-02-16 17:07 | NUR ---
PT CARE ASSUMED AFTER REPORT. SR ON MONITOR. PT WITH INCREASED BP. DR PICHARDO NOTIFIED X2. ORDERS RECIEVED X2. CRRT CONTINUES. IVF INFUSING. SOME URINE OUTPUT. PT VENTILATED. NO SEDATION. PT UNRESPONSIVE. AGONAL BREATHES. NG TO L NARE TO LIS. ART LINE IN PLACE AND FUNCTIONING WELL L JUGULAR TRIPLE LUMEN. TEMP DIALYSIS PORT TO R JUGULAR. TEMP LOW AT 94.1 AT APPROX 1330. CAITIE HUGGER PLACED. TEMP NOW 97.9. 1U FFP GIVEN. PROTONIX GTT INFUSING. FECAL COLLECTION SYSTEM IN PLACE WITH DARK LIQUID STOOL. SAMPLE FOR CDIFF SENT. NO S/S OF PAIN. NOT PROGRESSING TOWARDS GOALS.
[2018-02-16 18:03] LABS: BE -2.3 mmol/L (-2 to +3); pH 7.594 (7.340-7.450)
[2018-02-16 18:05] LABS: PO2 147.8 mmHg (75.0-100.0)
[2018-02-16 18:08] LABS: ABSOLUTE LYMPHOCYTES 0.2 thou/uL (0.8-5.3); ABSOLUTE MONOCYTES 0.3 thou/uL (0.0-1.2); ABSOLUTE NEUTROPHILS 5.3 thou/uL (1.6-8.1); BASOPHILS 0.2 %; HEMATOCRIT 24.9 % (42.0-52.0); LYMPHOCYTES 3.3 %; MCH 30.5 pg (26.0-34.0); MCHC 35.7 g/dL (28.0-37.0); MCV 85.5 fL (80.0-100.0); MONOCYTES 5.3 %; MPV 8.4 fl. (7.2-11.1); NUCLEATED RBCS 0 /100WBC; PLATELET COUNT* 68 thou/uL (150-400); POLYS 91.2 %; RBC 2.91 mil/uL (4.50-6.00); RDW-CV 14.8 % (10.5-14.5); WBC 5.9 thou/uL (4.0-11.0)
[2018-02-16 18:10] LABS: HEMOGLOBIN 8.9 gm/dL (14.0-18.0)
[2018-02-16 18:19] LABS: APTT 31.6 Seconds (25.0-31.3); INR 1.2; PROTIME 12.1 Seconds (9.20-11.50)
[2018-02-16 18:25] LABS: ALBUMIN 1.9 g/dL (3.4-5.0); CALCIUM 7.6 mg/dL (8.5-10.1); MAGNESIUM 1.7 mg/dL (1.8-2.4); PHOSPHORUS* 3.7 mg/dL (2.5-4.9); POTASSIUM 3.6 mmol/L (3.5-5.1); TOTAL BILIRUBIN 1.5 mg/dL (<0.1-1.0)
[2018-02-16 18:26] LABS: CREATININE 4.7 mg/dL (0.6-1.3)
--- NOTE | 2018-02-16 21:59 | CON ---
[address] [address] CONSULTATION Name: DELISA EVANS Room: [address] IN .R.#: [id number] Admission: 02/15/18 Attend Phys: Carmela Orantes MD Discharge: Date of : 66 Report #: [id number] THIS REPORT FOR: //name// CC: Dirk Orantes DATE OF SERVICE: 02/15/2018 REASON FOR CONSULTATION: Disseminated intravascular coagulation. SOURCE OF INFORMATION: Medical records. The patient is unresponsive. SUBJECTIVE: This is a 47-year-old male who was found by his mother after he was in his normal state of health. He was taken to CT scan through a code stroke; however, he developed a PEA and coded, resuscitated. The patient was noted to have a seizure activity at that time. In addition to that, the patient was found to be in renal failure. He was started on dialysis. Upon admission, his creatinine was 11.2; however, his baseline is between 3 and 4. He has a urine tox screen which came back negative. During his hospital admission today, he had a 2D echo which showed vegetations adherent to the pulmonic valvular apparatus. Hematology consultation was requested due to thrombocytopenia. Upon admission, his platelet count was 140; in 05/2017, it was 195. During the day after resuscitation, his platelet count dropped to 66 and repeated one later this evening was 94. In addition to that, his hemoglobin dropped to 6.0 and he received blood transfusion. I requested a fibrinogen level and level was 292. However, his PT was elevated at 12.0 and PTT 60.8 with elevated D-dimer 21.5. REVIEW OF SYSTEMS: Unable to be obtained. PAST MEDICAL HISTORY: Diabetes mellitus, chronic kidney disease. MEDICATIONS: Per admission list. ALLERGIES: No known allergies. FAMILY HISTORY: Noncontributory. SOCIAL HISTORY: Per the records, he is a former smoker, quit more than one year. He drinks alcohol. PHYSICAL EXAMINATION: VITAL SIGNS: Temperature 35.1, he is hypothermic; pulse is 82; respirations 15; blood pressure is 127/78, SpO2 is 97%. GENERAL: He is currently intubated. By physical examination, the patient had oozing of blood around [place] [address] CONSULTATION Name: DELISA EVANS Room: [address]#: [id number] Admission: 02/15/18 Attend Phys: Carmela Orantes MD Discharge: Date of : 66 Report #: [id number] His rectal tube was dark red. LUNGS: Decreased breathing sounds bilaterally. ABDOMEN: Soft, nondistended. No guarding. EXTREMITIES: +1 edema bilaterally. LABORATORY DATA: WBC 9.6; hemoglobin is 8.3, improved from 5.9; platelet count is 94, improved from 66. Creatinine 7.2. IMAGING: CT chest showed diffuse patchy central infiltrates throughout both lungs. The patient had a large pericardial effusion, no significant pleural effusion. A CT head, noncontrast CT scan demonstrated mild atrophy compatible with middle age. CT abdomen showed no solid organ abnormalities. There is delayed progression of contrast through kidneys. ASSESSMENT AND PLAN: A 47-year-old male who was admitted after being unresponsive. He had a cardiac arrest through PEA. He was found to have bilateral infiltrates with vegetations at the pulmonic valve. CBC revealed severe anemia, which was transfused. In addition to that, he had a platelet drop, he has thrombocytopenia with a coagulation study consistent with DIC. His fibrinogen has been checked today and it was 292. RECOMMENDATIONS: 1. In terms of blood transfusion, recommend to transfuse PRBCs to keep his hemoglobin more than 8. 2. Due to the adequate fibrinogen level at this point and elevated PT and PTT and D-dimer, I would recommend to transfuse fresh frozen plasma in the setting of bleeding. 2. In terms of his thrombocytopenia due to above, I would like to keep his platelet count at least above 50 in the setting of active bleeding and DIC. <ELECTRONICALLY SIGNED> By: Reena Cervantes MD 02/16/18 2159 2317 [id number] Cervantes MD /nt
--- NOTE | 2018-02-16 23:19 | NUR ---
CRRT STOPPED AT 2300 PER PHYSICIAN ORDER.
[2018-02-17] VITALS (12 sets, daily range): BP systolic 104–190; BP diastolic 54–91
[2018-02-17 03:24] LABS: ABSOLUTE LYMPHOCYTES 0.2 thou/uL (0.8-5.3); ABSOLUTE MONOCYTES 0.3 thou/uL (0.0-1.2); ABSOLUTE NEUTROPHILS 5.4 thou/uL (1.6-8.1); BASOPHILS 0.1 %; EOSINOPHILS 0.1 %; HEMATOCRIT 23.3 % (42.0-52.0); HEMOGLOBIN 8.2 gm/dL (14.0-18.0); LYMPHOCYTES 2.8 %; MCH 30.4 pg (26.0-34.0); MCHC 35.2 g/dL (28.0-37.0); MCV 86.3 fL (80.0-100.0); MONOCYTES 5.6 %; NUCLEATED RBCS 0 /100WBC; PLATELET COUNT* 54 thou/uL (150-400); POLYS 91.4 %; WBC 5.9 thou/uL (4.0-11.0)
[2018-02-17 03:40] LABS: APTT 32.9 Seconds (25.0-31.3); INR 1.2
[2018-02-17 03:45] LABS: ALBUMIN 1.7 g/dL (3.4-5.0); CALCIUM 7.5 mg/dL (8.5-10.1); CREATININE 4.5 mg/dL (0.6-1.3); MAGNESIUM 1.7 mg/dL (1.8-2.4); POTASSIUM 3.9 mmol/L (3.5-5.1); TOTAL PROTEIN 4.5 g/dL (6.4-8.2)
--- NOTE | 2018-02-17 04:48 | NUR ---
PT. REMAINS STABLE ON VENTILATOR, FENTANYL GTT AT 25MCG/HR. PT. PUPILS SLUGGISH. MTN UPDATED ON STATUS. DOES NOT RESPOND TO PAINFUL STIMULI, RESTRAINTS REMAIN OFF. SINUS RHYTHM ON MONITOR WITH INFREQUENT PVC'S. CRRT DONE AT 2300, NO FLUID REMOVED PER ORDER. LABS IMPROVING. FAMILY UPDATED ON PT. STATUS. PT. HAS REMAINED HYPERTENSIVE, DR. WATERMAN NOTIFIED, SEE MAR. WILL CONTINUE TO MONITOR.
--- NOTE | 2018-02-17 07:54 | CON ---
[address] [address] CONSULTATION Name: DELISA EVANS Room: [address] IN .R.#: [id number] Admission: 02/15/18 Attend Phys: Carmela Orantes MD Discharge: Date of : 66 Report #: [id number] THIS REPORT FOR: //name// CC: Dirk Orantes DATE OF SERVICE: 02/16/2018 INFECTIOUS DISEASE CONSULTATION ATTENDING PHYSICIAN: Dr. Orantes. REASON FOR EVALUATION: Septic shock, uncertain etiology, complicated by multiorgan failure and profound lactic acidemia. HISTORY OF PRESENT ILLNESS: This is a 47-year-old who was emergently brought to the Emergency Room, was found unresponsive, had developed malignant cardiac rhythms and required resuscitation. At this point, he was intubated. He did have a seizure apparently. Due to severe renal failure, he is currently on dialysis as well as ventilatory support. He is not responsive. He did undergo echocardiogram, which showed tricuspid vegetation. No additional history noted. ALLERGIES: None known. MEDICATIONS: Include vancomycin, levofloxacin ____ for renal failure, labetalol, methylprednisolone, metoprolol, Zosyn, levetiracetam and albuterol. PAST MEDICAL HISTORY: History of diabetes I believe and some renal insufficiency. SOCIAL HISTORY: Unknown. FAMILY HISTORY: Noncontributory. REVIEW OF SYSTEMS: Not obtainable. PHYSICAL EXAMINATION: GENERAL: He appears toxic. He is unresponsive and maintained on ventilatory support. VITAL SIGNS: Temperature is 96.3, pulse 76, respirations 12 and blood pressures 207/100. It is notable had been as low as 96/59 early a.m. HEENT: Multiple tubes in place. LUNGS: Scattered coarse breath sounds. HEART: Regular. I do not appreciate any murmur. ABDOMEN: Soft. There are actually no peritoneal signs. GENITOURINARY AND RECTAL: [place] [address] CONSULTATION Name: DELISA EVANS Room: [address]#: [id number] Admission: 02/15/18 Attend Phys: Carmela Orantes MD Discharge: Date of : 66 Report #: [id number] LABORATORY DATA: Initial CBC: White count of 9.7, H and H 10.3/21.8 and platelets of 141. Electrolytes: Sodium 143, potassium 5.8, chloride 108, bicarb is 9, anion gap of 26, BUN and creatinine 131 and 11.2 and glucose of 279. LFTs unremarkable. Albumin of 2.1 and total protein 4.8. Estimated GFR of 5. Troponin level was less than 0.06. PT of 12.0 and INR 1.2. D-dimer elevated at 21.58. Lactic acid of 13.1 initially and repeat was 7.9. CT of the pelvis, no solid organ abnormalities, stomach distended and mild dilatation of duodenum and proximal small bowel. Chest x-ray, bilateral patchy pulmonary opacities. CTA of the chest confirmed the opacities in both lungs, large pericardial effusion and no pneumothorax. Urine drug screen was negative. Urinalysis, 0-5 white cells. Echo: Left ventricle is normal size, moderate concentric left ventricular hypertrophy, LVEF is 65% and mild aortic valve sclerosis. There is no stenosis. Normal mitral valve: Tricuspid valve has prominent vegetation appended to the tricuspid valve: Moderate regurgitation. Pulmonary valve is normal. ABGs: pH 7.325 that is up from 6.899 on admission, pCO2 was 33.8, pO2 was greater than ____ on 100%. Most recent ABGs: pH 7.529, pCO2 of 22.1 and pO2 of 59.7 on 30%. Blood cultures are sterile thus far. ASSESSMENT: Septic shock. The patient perhaps has a primary cardiac issue with moderate circumferential pericardial effusion, so it raises question of mild pericardial process with the vegetation, cannot exclude an endocarditis either. We will continue broad-spectrum antimicrobial therapy. Await culture results. He is critically ill and I suspect he may not survive. We will discuss with Cardiology whether he is a candidate for any intervention. Wean off support as allowed. <ELECTRONICALLY SIGNED> By: Horace Urbano MD 02/17/18 0754 1636 [id number] Urbano MD /nt
--- NOTE | 2018-02-17 08:06 | NUR ---
PATIENT CARE ASSUMED AT 0700. PATIENT REMAINS ON VENTILATOR. FENTANYL RUNNING AT 25 MCG/HR. REMAINS NON RESPONSIVE. ASSESSMENT CHARTED. ABG COMPLETED BY RT. SISTER, TIRSO, UPDATED ON PLAN OF CARE IN ROOM. PER NEPHROLOGY, WILL ATTEMPT HEMODIALYSIS THIS AM. PREVIOUSLY BLOOD PRESSURES DID NOT TOLERATE THIS. CURRENT BP 189/71, LABETALOL HELD PRIOR TO DIALYSIS R/T LABILE BLOOD PRESSURES. ESTEPHANIE HUGGAR IN PLACE ON LOW, WHEN REMOVED PATIENT BECOMES HYPOTHERMIC. TRACING NSR ON LOAN APPROVER. O2 SAT 100% ON FIO2 40%. WILL CONTINUE WITH PLAN OF CARE.
[2018-02-17 08:16] LABS: BE -2.6 mmol/L (-2 to +3); HCO3 20.1 mmol/L (22.0-26.0); PCO2 26.6 mmHg (35.0-45.0); pH 7.497 (7.340-7.450)
[2018-02-17 08:17] LABS: PO2 152.6 mmHg (75.0-100.0)
--- NOTE | 2018-02-17 10:21 | EKG ---
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1970 Requested By: Zenon Hall Order Number: [id number] MD: Ike Sanchez Measurements Intervals [place] Rate: 85 P: 14 NV: 129 QRS: -15 QRSD: 106 T: 17 QT: 394 QTc: 469 Interpretive Statements Sinus rhythm Borderline left axis deviation Low voltage, extremity leads Minimal ST depression, anterolateral leads Baseline wander in lead(s) V6 Compared to ECG 06/17/2017 11:32:33 Low QRS voltage now present ST (T wave) deviation now present Electronically Signed On 02-17-2018 10:20:57 CDT by Ike Sanchez [email or web address] <ELECTRONICALLY SIGNED> By: Ike Sanchez MD, FACC 02/17/18 1020 1028 1028 Ike Sanchez MD, [facility] /EPI
--- NOTE | 2018-02-17 10:37 | NUR ---
PER PULMONARY, DISCONTINUE FENTANYL GTT AND GIVEN PRN FENTANYL PUSHES ONLY IF PATIENT RESPIRATIONS ARE >30.
--- NOTE | 2018-02-17 10:47 | CON ---
[address] [address] CONSULTATION Name: DELISA EVANS Room: [address] IN M.R.#: [id number] Admission: 02/15/18 Attend Phys: Carmela Orantes MD Discharge: Date of : 66 Report #: [id number] THIS REPORT FOR: //name// CC: Dirk Orantes DATE OF SERVICE: 02/15/2018 REQUESTING PHYSICIAN: ____ REASON FOR CONSULTATION: Acute kidney injury, severe metabolic acidosis. HISTORY OF PRESENT ILLNESS: The patient is a 47-year-old white male with medical history significant for chronic kidney disease stage 4. His GFR was 17 in 05/2017. He was seen by us at that time, Dr. Schaffer, my partner. The patient has history of longstanding diabetes mellitus and he is on insulin. He also has history of anemia. He presents to Emergency Room today after he coded at home. He was intubated in the field. Initially, paramedics were called for altered mental status. He did have hypoglycemia, blood sugar at that time was in the 30s, so brought to Emergency Room, found to be in severe acute kidney injury with creatinine of 11 and bicarbonate was 9, potassium was 5.8. ABGs are pending. His hemoglobin was 7.3, white count 9.[address] angiogram that had to be done to rule out PE was negative for PE. The patient also has a large pericardial effusion. His abdominal and pelvic CT was done as well with the IV contrast revealed no solid organ abnormality. FAMILY HISTORY: Noncontributory. SOCIAL HISTORY: No tobacco or alcohol abuse. MEDICATIONS: Reviewed. REVIEW OF SYSTEMS: Unobtainable. PHYSICAL EXAMINATION: VITAL SIGNS: Blood pressure 170/86, heart rate initially was 38, respiratory rate 15, heart rate now is better in the 70s. HEENT: Pupils is sluggish. NECK: Supple. LUNGS: Fairly clear. CARDIOVASCULAR: Regular rate. ABDOMEN: Soft. LOWER EXTREMITIES: [place] [address] CONSULTATION Name: DELISA EVANS Room: [address] IN [facility]#: [id number] Admission: 02/15/18 Attend Phys: Carmela Orantes MD Discharge: Date of : 66 Report #: [id number] LABORATORY REPORT: As mentioned earlier. ASSESSMENT: 1. A 47-year-old man status post code blue, severe metabolic acidosis, hyperkalemia, acute kidney injury. He is making urine, it is a good sign. However, he had a lot of exposure to the contrast, he had a CT of abdomen and pelvis with IV contrast, also had a CT angio of the chest for giving this severe conditions. The patient will need to be dialyzed emergently and in the meantime, I will be giving him bicarbonate and as discussed this case with Dr. García, with Dr. ____, with ICU nurses total of 40 minutes spent on this critical consult. He also has large pericardial effusion, I would like Cardiology to be involved. 2. Diabetes mellitus type 1 with frequent hypoglycemic episodes. 3. Failure to thrive. 4. Anemia. In summary, this is an unfortunate 47-year-old gentleman status post code blue with acute kidney injury, who will require emergent dialysis. <ELECTRONICALLY SIGNED> By: Ed De Jesus MD 02/17/18 1047 1146 [id number] De Jesus MD /[facility]
--- NOTE | 2018-02-17 12:21 | NUR ---
RE: PHARMACY ADJUSTMENT OF TPN. NOTE CRITICALLY ILL PT IN ICU, ON VENTILATOR, IN RENAL FAILURE (HEMODIALYSIS TODAY). CALCULATED BEE = 1380 KCAL/DAY X 1.5 FOR STRESS FACTOR. DECREASE PROTEIN (HEMODIALYSIS) START W/1 GM/KG/DAY USING NON-FREAMINE AMINO ACIDS. WILL REMOVE PHOSPHATE FROM TPN (NOTE CALCIUM NOT AVAILABLE FROM TPN PET WALKER-PHARMACY ABLE TO SUPPLEMENT CALCIUM NEEDED). WILL REDUCE GOAL TO 80% IN THIS ICU PT (WILL PROVIDE ~1400 ANGI/65 G PROT/24 HR). DAY 1 TO START AT 2/3 GOAL RATE (40 ML/HR). WILL FOLLOW. THANK YOU.
--- NOTE | 2018-02-17 12:28 | NUR ---
ESTEPHANIE GONZALEZ INCREASED TO HIGH TEMPERATURE FOR 96.4 DEGREE TEMPERATURE.
--- NOTE | 2018-02-17 12:52 | NUR ---
WOUND CARE NOTE: CONSULT RECEIVED FOR LOW JUANCHO PATIENT WITH A JUANCHO OF 10. LOW AIR LOSS MATTRESS FUNCTION IN PLACE. CARE PLAN WITH PREVENTATIVE MEASURES IN PLACE. PATIENT'S RN REPORTS NO WOUNDS. RECOMMEND TURN Q2 HOURS TIGHT BLOOD GLUCOSE CONTROL HOB <30 DEGREES IF ABLE TO TOLERATE BARRIER OINTMENT BID AND PRN LIMIT LAYERS OF LINEN UNDER PATIENT.
--- NOTE | 2018-02-17 14:12 | NUR ---
PT ADMITTED 02/15, INTUBATED IN THE AMBULANCE, CODED IN CT ON ADMISSION. PT REMAINS ON VENT, IS UNESPONSIVE, ON CAITIE HUGGER TO MAINIAIN BODY TEMP, ON MULIPLE GTTS. MOTHER AND SISTER TALKING WITH DR. ANTUNEZ ABOUT OPTIONS. EXPLAINED ALTHO THE PT HAS A VERY POOR PRGNOSIS AND MAY NEVER RECOVER TO THE POINT HE CAN BREATHE ON HIS OWN, HE WOULD RECOMMEND CONTINUING CARE FOR A LITTLE BIT LONGER, TO GIVE THE PT MORE TIME TO DETERMINE WHAT THE PROGNOSIS WILL BE. MOTHER ASKED THE SAME QUESTION MULTIPLE TIMES DURING CONVERSATION SO NOT SURE THAT SHE GRASPS THE SEVERITY OF THE SITUATION. PT'S SISTER DOES APPEAR TO HAVE A GOOD UNDERSTANDING OF SEVERITY OF PT'S CONDITION. MOTHER AND SISTER TALKING FURTHER TO EACH OTHER, THEY KNOW THAT NURSING AND CASE MGT ARE AVAILABLE IF THEY HAVE FURTHER QUESTIONS.
--- NOTE | 2018-02-17 16:06 | NUR ---
PATIENT'S DAUGHTER (PHOEBE) IN [facility] RETURNED PHONE CALL. STATED ANOTHER DTR (LYNN) WILL BE HERE IN 45 MINUTES TO PICK PATIENT UP. PATIENT IV OUT, DRESSED, ALL BELONGINGS GATHERED. AWAITING RIDE.
--- NOTE | 2018-02-17 17:38 | NUR ---
PATIENT NOT PROGRESSING TOWARDS GOALS. REFLEXES NOT PRESENT, MTN AWARE. POSTURING WITH MINOR STIMULATION AT TIMES. UNABLE TO REGULATE TEMPERATURE, HYPOTHERMIC WHEN ESTEPHANIE HUGGER IS OFF. 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 WITHIN MINUTES OF BEING ON DIALYSIS HYPOTENSIVE. DIRECTOR OF REGULATORY AFFAIRS DECREASED FLUID AMOUNT TAKING OFF AND BLOOD PRESSURES TOLERATED, BUT HAD TO BE STOPPED 9 MINUTES EARLY R/T LOW PRESSURES. WITHIN MINUTES OF DIALYSIS BEING DISCONNECTED, PATIENT HYPERTENSIVE AGAIN. CURRENTLY 203/74. PHYSICIAN PAGED WITH NO RESPONSE, REPAGED AT THIS TIME. LABETALOL AND METOPROLOL PRN GIVEN WITH NO RELIEF. NOT TAKING ANY BREATHS OVER THE VENTILATOR. LUNGS REMAIN CLEAR/DIMINISHED. DR PICHARDO SPOKE WITH MOTHER AND SISTER ABOUT PLAN OF CARE, BUT THEY WISHED TO SPEAK WITH THE NEUROLOGIST SPECIFICALLY. THIS NURSE WAS PRESENT FOR CONVERSATION WITH THE NEUROLOGIST WHO EXPLAINED THAT PATIENT MOST LIKELY DOES NOT HAVE GOOD PROGNOSIS, BUT IT IS TOO EARLY TO DEFINITELY SAY. MOTHER OF PATIENT WOULD LIKE TO REPEAT EEG AND POSSIBLY MRI IF EEG IS INCONCLUSIVE BEFORE MAKING DECISIONS.
--- NOTE | 2018-02-17 22:55 | EEG ---
[address] [address] EEG STUDY REPORT Name: DELISA EVANS Room: [address] IN ..#: [id number] Admission: 02/15/18 Attend Phys: Carmela Orantes MD Discharge: Date of : 66 Report #: [id number] THIS REPORT FOR: //name// CC: Dirk Orantes DATE OF SERVICE: 02/17/2018 This patient is being evaluated for hypoxic encephalopathy. EEG was done by placing the electrode by standard 10-20 system of electrode placement. Both referential and sequential montages were used for recording. The patient's EEG was started at 7 microvolts, no electrical activity was noticed. At 3 microvolts, it is difficult to rule out a small activity, but EEG does not appear to be showing any well-defined electrical activity. Some artifact is present. IMPRESSION: This patient's EEG does not demonstrate any clear-cut electrical activity. Thank you very much for this referral. <ELECTRONICALLY SIGNED> By: Jacob Box MD 02/17/18 2255 1711 1911Patif Box MD /nt
[2018-02-18] VITALS (10 sets, daily range): BP systolic 125–143; BP diastolic 68–71
[2018-02-18 03:50] LABS: ABSOLUTE LYMPHOCYTES 0.2 thou/uL (0.8-5.3); ABSOLUTE MONOCYTES 0.4 thou/uL (0.0-1.2); ABSOLUTE NEUTROPHILS 6.1 thou/uL (1.6-8.1); BASOPHILS 0.1 %; HEMATOCRIT 21.6 % (42.0-52.0); HEMOGLOBIN 7.5 gm/dL (14.0-18.0); LYMPHOCYTES 2.4 %; MCH 30.5 pg (26.0-34.0); MCHC 34.7 g/dL (28.0-37.0); MCV 87.8 fL (80.0-100.0); MONOCYTES 5.5 %; MPV 9.2 fl. (7.2-11.1); NUCLEATED RBCS 0 /100WBC; PLATELET COUNT* 76 thou/uL (150-400); RBC 2.46 mil/uL (4.50-6.00); RDW-CV 15.5 % (10.5-14.5); WBC 6.6 thou/uL (4.0-11.0)
[2018-02-18 03:51] LABS: BE 2.5 mmol/L (-2 to +3); HCO3 24.7 mmol/L (22.0-26.0); PO2 128.7 mmHg (75.0-100.0)
[2018-02-18 04:10] LABS: ALBUMIN 1.6 g/dL (3.4-5.0); MAGNESIUM 1.7 mg/dL (1.8-2.4); PHOSPHORUS* 3.5 mg/dL (2.5-4.9); POTASSIUM 3.7 mmol/L (3.5-5.1); TOTAL BILIRUBIN 0.8 mg/dL (<0.1-1.0); TOTAL PROTEIN 4.5 g/dL (6.4-8.2)
[2018-02-18 04:23] LABS: CREATININE 3.4 mg/dL (0.6-1.3)
[2018-02-18 05:31] LABS: APTT 33.8 Seconds (25.0-31.3); INR 1.1; PROTIME 10.4 Seconds (9.20-11.50)
--- NOTE | 2018-02-18 06:28 | NUR ---
NO CHANGE THIS SHIFT. PT IS NON RESPONSIVE WITH ABSENT COUGH, GAG, CORNEAL, AND PUPILLARY REFLEXES. PT INTERMITTENTLY MOVES HEAD IN THE DIRECTION OF AN EXTREMITY BEING MOVED, OTHERWISE MAKES NO MOVEMENTS. VSS. COMPLETE BED BATH GIVEN. PT HAS BEEN TURNED Q2HR THROUGHOUT THE SHIFT.
--- NOTE | 2018-02-18 07:41 | NUR ---
RECIEVED REPORT FROM DUARTE SAHU. ASSESSMENT CHARTED. ROUNDING PHYSICAN WILL ADDRESS COMFORT CARE TODAY WITH FAMILY. WILL CONTINUE TO MONITOR.
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
--- NOTE | 2018-02-18 19:35 | NUR ---
DR. ANTUNEZ SPOKE TO FAMILY TODAY ABOUT WITHDRAWING CARE THIS EVENING SOON ALL OF THE FAMILY HAD SAID GOODBYE TO PT. FAMILY DID NOT WANT ANY DIALYSIS TODAY AND DECIDED THEY WOULD LIKE TO HAVE PT EXTUABTED THIS EVENING. RT ARRIVED AND EXTUBATED PT AT 1835. FAMILY WAS IN RM AND PT AND TIME OF WAS 1840. MYSELF AND DUARTE KAPADIA PRONOUNCED WITH FAMILY AT BEDSIDE. FAMILY NOTIFIED. PHYSICAN NOTIFIED.
--- NOTE | 2018-02-18 20:00 | NUR ---
PT 1840. CALLED [facility] SPOKE WITH JEVON. WAITING ON FAMILY TO FINALIZE PAPERWORK. RECIEVED REFERRAL # PT ELIGIBLE FOR EYE AND TISSUE DONATION. PT BODY IS BEING COOLED. ICE PACKS ON EYES AND BODY. SPOKE WITH DR. VIERA TO ORDER THAT DR. PICHARDO WILL BE SIGNING CERTIFICATE. WILL KEEP IN CONTACT WITH FAMILY AND MT[facility] FOR FURHTER PLANS.
--- NOTE | 2018-02-18 23:24 | NUR ---
SPOKE WITH JEVON FROM [facility] STATED THAT SHE HAS SPOKEN WITH THE FAMILY ALL PAPER WORK NEEDED HAS BEEN SIGNED. SHE WILL SET UP TRANSPORT FOR THEM TO COME PICK HIM UP HERE ON OUR UNIT. JEVON WILL CALL [facility] AND UPDATE THEM ON CURRENT PLANS.
--- NOTE | 2018-02-19 03:43 | NUR ---
PT LEFT UNIT AT 0335 WITH BILL FROM [facility].
--- NOTE | 2018-02-23 12:34 | EEG ---
[address] [address] EEG STUDY REPORT Name: DELISA EVANS Room: [address] IN M.R.#: [id number] Admission: 02/15/18 Attend Phys: Carmela Orantes MD Discharge: 02/18/18 Date of : 66 Report #: [id number] THIS REPORT FOR: //name// CC: Dirk Orantes DATE OF SERVICE: 02/16/2018 This patient is being evaluated for the possibility of encephalopathy and seizure. EEG was done by placing the electrode by standard 10-20 system of electrode placement. Both referential and sequential montages were used for recording. Background activity in this patient's EEG is about 6-7 Hz and 10 microvolts. It is a very low voltage activity. A lot of artifact is present. Photic stimulation is unremarkable. Throughout the record, no active epileptiform activity was noticed. IMPRESSION: This is an abnormal EEG, which will be consistent with a diagnosis of severe encephalopathy. However, no active epileptiform activity was noticed. Finding is nonspecific and therefore, clinical correlation is recommended. <ELECTRONICALLY SIGNED> By: Jacob Box MD 02/23/18 1234 1803 1823Patif Box MD /nt
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
--- NOTE | 2018-03-23 13:22 | CON ---
[address] [address] CONSULTATION Name: DELISA EVANS Room: [address] IN M.R.#: [id number] Admission: 02/15/18 Attend Phys: Carmela Orantes MD Discharge: 02/18/18 Date of : 66 Report #: [id number] THIS REPORT FOR: //name// CC: Dirk Orantes DATE OF SERVICE: 02/15/2018 REASON FOR CONSULTATION: Suspected gastrointestinal bleed. Consult placed by Dr. Carmela Orantes. HISTORY OF PRESENT ILLNESS: The history has been obtained from the patient's mother and family as the patient is currently somnolent, intubated and sedated and unable to answer any questions. The patient lives with his mother, has a prior medical history of hypertension and diabetes. The mother reports that the patient had had problems in the past with confusion from episodes of low blood glucose. The day before the presentation, the patient's mother noted that the patient was confused and checked his blood glucose and it appeared to be in the 140s. She gave him a piece of candy and rechecked his blood glucose and it was in the 160s. His mental status did not improve significantly, but the patient felt tired and went to sleep. The following morning, the patient's mother tried to wake him up and he was completely unresponsive and at this time he was brought in to the hospital. Over the course of admission, the patient was noted to have severe lactic acidosis and uremia. The patient continues to be sedated and intubated. GI service has been consulted because the patient was noted to have some red colored blood coming out of his NG tube and some dark colored stools. The patient's mother denies previous episodes of hematemesis and reports that he rarely uses NSAIDs and usually uses Tylenol. PAST MEDICAL HISTORY: As mentioned above, the patient has a history of hypertension and diabetes mellitus. PAST SURGICAL HISTORY: Nonsignificant. FAMILY HISTORY: There is no significant history of GI related malignancies. SOCIAL HISTORY: The patient lives with his mother and is on disability. The patient's mother denies prior history of smoking tobacco. The patient does chew tobacco. There is no significant history of alcohol or recreational drug use. REVIEW OF SYSTEMS: Unable to obtain due to patient's mental status. PHYSICAL EXAMINATION: [place] [address] CONSULTATION Name: DELISA EVANS Room: [address]#: [id number] Admission: 02/15/18 Attend Phys: Carmela Orantes MD Discharge: 02/18/18 Date of : 66 Report #: [id number] VITAL SIGNS: Blood pressure is 98/51, pulse rate is between 30 and 50 and temperature 35.2. GENERAL: The patient is sedated and somnolent, not responding to voice or painful stimuli. An NG tube is in place. There appears to be some blood-tinged fluid in the tube. No supraclavicular lymphadenopathy is identified. PULMONARY: Reveals no rhonchi. CARDIOVASCULAR: Rate and rhythm regular, S1 and S2 present. ABDOMEN: Abdomen is soft and no distention with no organomegaly and no pulsatile masses detected. EXTREMITIES: There appears to be pedal edema. RECTAL: A rectal tube is in place and dark colored stool is seen. LABORATORY DATA: Hemoglobin 7.8, hematocrit 22.3, platelet count 84. BUN 135 and creatinine 10.3. IMAGING: Abdominal CT. No solid organ abnormalities. Delayed progression of contrast to the kidneys. The patient is hypotensive. Possibility of mild pyelonephritis should be considered. Mild dilation of duodenum and proximal small bowel. No discrete obstruction is seen. Pancreas is normal in size. Spleen is normal in size. ASSESSMENT AND PLAN: .1. A 47-year-old male who was brought in by the family members after he was found to be unresponsive. Over the course of admission, the patient has been noted to have uremia with altered mental status, profound lactic acidosis, hypotension and shock. GI service was consulted for evaluation of possible upper GI bleeding as blood-tinged fluid was seen emanating from the nasogastric tube. 2. The patient has already been placed on PPI drip. We will continue to monitor him clinically. EGD can be performed if the patient's status stabilizes. I suspect the blood tinge in nasogastric aspirate is due to uremic gastritis. There was no evidence of obvious hematemesis and I definitely do not suspect the GI bleeding as the cause of his hypotension. Further recommendations will depend on the patient's clinical course. <ELECTRONICALLY SIGNED> By: Kishan Nickerson MD 03/23/18 1322 1755 [id number] Nickerson MD /nt
== END 2018-02-18 18:41 | DRG 871 ==
LOC: M.ERS 09:33 → EDBD 09:33 → M.ERS 09:33 → M.ICU 11:30 → M.TBA-ER 11:30 → M.ICU 13:10
PROVIDERS: Emergency Medicine Emergency Medical Services; Internal Medicine; Internal Medicine Critical Care Medicine; Internal Medicine Nephrology; ADMIT Internal Medicine
PROC: 5A12012 Performance of Cardiac Output, Single, Manual (ICD-10-PCS; principal; 2018-02-15)
PROC: 30233N1 Transfusion of Nonautologous Red Blood Cells into Peripheral Vein, Percutaneous Approach (ICD-10-PCS; principal; 2018-02-15)
PROC: 5A1945Z Respiratory Ventilation, 24-96 Consecutive Hours (ICD-10-PCS; principal; 2018-02-15)
PROC: 0BH17EZ Insertion of Endotracheal Airway into Trachea, Via Natural or Artificial Opening (ICD-10-PCS; principal; 2018-02-15)
PROC: B5181ZA Fluoroscopy of Superior Vena Cava using Low Osmolar Contrast, Guidance (ICD-10-PCS; principal; 2018-02-15)
PROC: B548ZZA Ultrasonography of Superior Vena Cava, Guidance (ICD-10-PCS; principal; 2018-02-15)
PROC: 02HV33Z Insertion of Infusion Device into Superior Vena Cava, Percutaneous Approach (ICD-10-PCS; principal; 2018-02-15)
PROC: 30233L1 Transfusion of Nonautologous Fresh Plasma into Peripheral Vein, Percutaneous Approach (ICD-10-PCS; 2018-02-16)
PROC: 30233K1 Transfusion of Nonautologous Frozen Plasma into Peripheral Vein, Percutaneous Approach (ICD-10-PCS; 2018-02-16)
PROC: 5A1D70Z Performance of Urinary Filtration, Intermittent, Less than 6 Hours Per Day (ICD-10-PCS; 2018-02-17)
DX: A41.9 Sepsis, unspecified organism (principal); R65.21 Severe sepsis with septic shock; J69.0 Pneumonitis due to inhalation of food and vomit; J96.01 Acute respiratory failure with hypoxia; G93.41 Metabolic encephalopathy; D65 Disseminated intravascular coagulation [defibrination syndrome]; I33.0 Acute and subacute infective endocarditis; N17.0 Acute kidney failure with tubular necrosis; S22.39XA Fracture of one rib, unspecified side, initial encounter for closed fracture; K92.2 Gastrointestinal hemorrhage, unspecified; N18.4 Chronic kidney disease, stage 4 (severe); I31.3 Pericardial effusion (noninflammatory); E87.3 Alkalosis; G93.1 Anoxic brain damage, not elsewhere classified; K55.9 Vascular disorder of intestine, unspecified; I12.9 Hypertensive chronic kidney disease with stage 1 through stage 4 chronic kidney disease, or unspecified chronic kidney disease; M19.90 Unspecified osteoarthritis, unspecified site; I46.9 Cardiac arrest, cause unspecified; E87.5 Hyperkalemia; E10.22 Type 1 diabetes mellitus with diabetic chronic kidney disease; E10.649 Type 1 diabetes mellitus with hypoglycemia without coma; R62.7 Adult failure to thrive; D64.9 Anemia, unspecified; I51.3 Intracardiac thrombosis, not elsewhere classified; J98.01 Acute bronchospasm; Z51.5 Encounter for palliative care; E87.8 Other disorders of electrolyte and fluid balance, not elsewhere classified; Y33.XXXA Other specified events, undetermined intent, initial encounter; Y92.238 Other place in hospital as the place of occurrence of the external cause; Z79.899 Other long term (current) drug therapy; Z79.4 Long term (current) use of insulin; Z87.891 Personal history of nicotine dependence; Y93.89 Activity, other specified; Y99.8 Other external cause status